=== PATIENT | female | born 1970 | race Caucasian/White ===

== ENCOUNTER 2018-05-14 15:38 | Outpatient (CLI) | payer OTHER ==
[~2018-05-14 15:38] MED LIST: OXYC-302 PO; POLY17PO5 PO
== END 2018-05-21 12:46 | disposition home or self-care (01) ==
LOC: CFH 15:38
PROVIDERS: ATTEND Obstetrics & Gynecology
DX: Z12.31 Encounter for screening mammogram for malignant neoplasm of breast (principal)
CPT/HCPCS: 77063; 77067

== ENCOUNTER → 2019-08-28 | Outpatient (CLI) | payer OTHER | END | disposition home or self-care (01) | LOC: CFH 13:17 | PROVIDERS: ATTEND Obstetrics & Gynecology | DX: Z12.31 Encounter for screening mammogram for malignant neoplasm of breast (principal) | CPT/HCPCS: 77067 ==

== ENCOUNTER 2020-09-16 09:50 | Outpatient (CLI) | payer OTHER ==
[~2020-09-16 09:50] MED LIST changes: -OXYC-302 PO; +OXYC1TAB14 PO
== END 2020-09-16 23:59 | disposition home or self-care (01) ==
LOC: CFH 09:50
PROVIDERS: ATTEND Obstetrics & Gynecology
DX: Z12.31 Encounter for screening mammogram for malignant neoplasm of breast (principal)
CPT/HCPCS: 77063; 77067